=== PATIENT | male | born 1945 | race Hispanic/Latino ===

== ENCOUNTER 2017-10-10 07:47 | Emergency (ER) | payer MEDICARE, OTHER ==
[2017-10-10] MEDS ORDERED: Proparacaine 0.5% Opth 15 ML BOT ONE (08:45)
[2017-10-10] MEDS ORDERED: Fluorescein Opthalmic Strip ONE (08:45)
== END 2017-10-10 09:57 | disposition home or self-care (01) ==
LOC: ERS 07:47
DX: E03.9 Hypothyroidism, unspecified; S05.01XA Injury of conjunctiva and corneal abrasion without foreign body, right eye, initial encounter; E11.9 Type 2 diabetes mellitus without complications; F17.210 Nicotine dependence, cigarettes, uncomplicated; X58.XXXA Exposure to other specified factors, initial encounter
CPT/HCPCS: 65220

== ENCOUNTER 2020-05-03 17:23 | Emergency (ER) | payer MEDICARE, OTHER ==
[2020-05-03] MEDS ORDERED: Proparacaine 0.5% Opth 15 ML BOT ONE (18:12)
[2020-05-03] MEDS ORDERED: Fluorescein Opthalmic Strip ONE (18:12)
== END 2020-05-03 17:25 | disposition home or self-care (01) ==
LOC: ERS 17:23
DX: H11.31 Conjunctival hemorrhage, right eye (principal); B30.9 Viral conjunctivitis, unspecified; E11.9 Type 2 diabetes mellitus without complications; E03.9 Hypothyroidism, unspecified; F17.210 Nicotine dependence, cigarettes, uncomplicated
CPT/HCPCS: 99282

== ENCOUNTER 2020-12-09 01:56 | Emergency (ER) | payer MEDICARE, OTHER | END 2020-12-09 04:35 | disposition home or self-care (01) | LOC: ERS 01:56 | DX: H60.91 Unspecified otitis externa, right ear (principal); E11.9 Type 2 diabetes mellitus without complications; E03.9 Hypothyroidism, unspecified; F17.210 Nicotine dependence, cigarettes, uncomplicated | CPT/HCPCS: 99282 ==

== ENCOUNTER 2023-02-17 19:31 | Emergency (ER) | payer MEDICARE, OTHER | END 2023-02-17 20:52 | disposition home or self-care (01) | LOC: ERS 19:31 | DX: I88.9 Nonspecific lymphadenitis, unspecified (principal); F17.210 Nicotine dependence, cigarettes, uncomplicated; E11.9 Type 2 diabetes mellitus without complications | CPT/HCPCS: 99283 ==

== ENCOUNTER 2025-03-18 16:33 | Emergency (ER) | payer MEDICARE, OTHER ==
[~2025-03-18 16:33] MED LIST: Iopamidol-370 76% 500 ML MDV (1 ML CHARGE) ONE
[2025-03-18 18:29] LABS: #Basophils 0.04 10x3/uL (0.0-0.2); #Eosinophils 0.47 10x3/uL (0.0-0.7); #Monocytes 0.71 10x3/uL (0.11-0.59); #Neutrophils 6.66 10x3/uL (1.40-6.50); %Basophils 0.4 % (0.0-1.0); %Eosinophils 5.1 % (0.0-10.0); %Lymphocytes 14.0 % (21.0-51.0); %Monocytes 7.7 % (0.0-10.0); %Neutrophils 72.3 % (42.0-75.0); Hematocrit 45.6 % (42.0-52.0); Hemoglobin 14.7 g/dL (14.0-18.0); Mean Corpuscular Hemoglobin 30.4 pg (27.0-31.0); Mean Corpuscular Volume 94.2 fL (78.0-98.0); Platelet Count 271 10x3/uL (130-400); Red Blood Cell (RBC) Count 4.84 mill/uL (4.70-6.10); White Blood Cell (WBC) Count 9.22 10x3/uL (4.8-10.8)
[2025-03-18 18:44] LABS: ALT (SGPT) 19 U/L (Less than 45); AST (SGOT) 25 U/L (11-34); Albumin 3.9 g/dL (3.1-4.5); Alkaline Phosphatase 81 U/L (40-110); Anion Gap 14 mmol/L (10-20); BUN (Urea Nitrogen) 14 mg/dL (8.4-25.7); Bilirubin, Total 0.4 mg/dL (0.3-1.2); Calc. Creatinine Clearance 0 mL/min (70-130); Calcium 9.5 mg/dL (7.8-10.44); Carbon Dioxide 24 mmol/L (23-31); Chloride 106 mmol/L (98-107); Globulin 3.0 g/dL (2.4-3.5); Glucose 98 mg/dL (83-110); Potassium 4.4 mmol/L (3.5-5.1); Sodium 140 mmol/L (136-145)
[2025-03-18 18:47] LABS: INR-International Normal Ratio 1.0; PTT 31.9 sec (22.9-36.1); Prothrombin Time 13.2 sec (12.0-14.7)
== END 2025-03-18 19:50 | disposition home or self-care (01) ==
LOC: ERS 16:33
DX: T79.7XXA Traumatic subcutaneous emphysema, initial encounter (principal); E78.5 Hyperlipidemia, unspecified; E11.9 Type 2 diabetes mellitus without complications; E03.9 Hypothyroidism, unspecified; F17.210 Nicotine dependence, cigarettes, uncomplicated; Z79.84 Long term (current) use of oral hypoglycemic drugs; Z79.899 Other long term (current) drug therapy
CPT/HCPCS: 36415; 70491; 80053; 85025; 85610; 85730; Q9967

== ENCOUNTER 2025-07-03 12:29 | Emergency (ER) | payer MEDICARE, OTHER | END 2025-07-03 12:49 | disposition home or self-care (01) | LOC: ERS 12:29 | DX: K40.90 Unilateral inguinal hernia, without obstruction or gangrene, not specified as recurrent (principal); E11.9 Type 2 diabetes mellitus without complications; E03.9 Hypothyroidism, unspecified; E78.5 Hyperlipidemia, unspecified; F17.210 Nicotine dependence, cigarettes, uncomplicated; Z79.890 Hormone replacement therapy | CPT/HCPCS: 99283 ==